=== PATIENT | female | born 1980 | race Caucasian/White ===

== ENCOUNTER 2022-01-25 17:27 | Emergency (ER) | payer OTHER ==
[2022-01-25 18:32] VITALS: TEMP 98.3
[2022-01-25] MEDS ORDERED: KETOROLAC 15 MG/ML 1 ML VIAL IVP STA (19:12)
[2022-01-25] MEDS ORDERED: SODIUM CHLORIDE 0.9% 1,000 ML IV STA (19:12)
--- NOTE | 2022-01-25 19:21 | ED ---
Female Urogenital HPI - General Source: patient, family, RN notes reviewed Mode of arrival: ambulatory Limitations: no limitations - History of Present Illness MD Complaint: vaginal bleeding Consistency: constant <Susan Arndt - Last Filed: 01/26/22 02:50> <Debby Hernandez - Last Filed: 01/29/22 22:46> - General Chief complaint: Vaginal Bleeding Stated complaint: Vaginal bleeding Time Seen by Provider: 01/25/22 18:52 - History of Present Illness Initial comments: This is a 41-year-old female who presents to the emergency department for vaginal bleeding. She and her were having sexual intercourse yesterday, and the condom broke. She then purchased and took a Plan B pill as a precautionary measure. She felt fine yesterday, however today around 1 PM, she began to have heavy bleeding. She is saturating pads every 20 minutes and is p assing very large clots as well. Also has associated dizziness, lightheadedness, nausea, and pelvic cramping. She has never taken Plan B before. She lives in [place], [place] where she is established with an HUMAN RESOURCE ANALYST. Denies any fevers, chills, sore throat, cough, dyspnea, chest pain, palpita tions, vomiting, diarrhea, back pain, or headaches. (Susan Arndt) - Related Data Previous Rx's Medication Instructions Recorded HYDROcodone/APAP 5-325MG [Joppa 1 tab PO Q6HR PRN 3 Days #12 tab 01/25/22 5-325] Allergies Allergy/AdvReac Type Severity Reaction Status Date / Time sulfamethoxazole Allergy Unknown Verified 01/25/22 18:32 [From Bactrim] tramadol Allergy Unknown Verified 01/25/22 18:32 trimethoprim [From Bactrim] Allergy Unknown Verified 01/25/22 18:32 Review of Systems ROS Other: All systems not noted in ROS Statement are negative. <Susan Arndt - Last Filed: 01/26/22 02:50> ROS Other: All systems not noted in ROS Statement are negative. <Debby Hernandez - Last Filed: 01/29/22 22:46> ROS Statement: Those systems with pertinent positive or pertinent negative responses have been documented in the HPI. Past Medical History Past Medical History: No Reported History History of Any Multi-Drug Resistant Organisms: None Reported Past Surgical History: Section Past Psychological History: Depression Smoking Status: Current every day smoker Past Alcohol Use History: None Reported Past Drug Use History: None Reported <Susan Arndt - Last Filed: 01/26/22 02:50> General Exam Limitations: no limitations General appearance: alert, in no apparent distress Head exam: Present: atraumatic, normocephalic, normal inspection Respiratory exam: Present: normal lung sounds bilaterally. Absent: respiratory distress, wheezes, rales, rhonchi, stridor Cardiovascular Exam: Present: regular rate, normal rhythm, normal heart sounds. Absent: systolic murmur, diastolic murmur, rubs, gallop, clicks External exam: Present: normal external exam Speculum exam: Present: vaginal bleeding. Absent: cervical discharge, tissue Neurological exam: Present: alert, oriented X3, CN II-XII intact Psychiatric exam: Present: normal affect, normal mood Skin exam: Present: warm, dry, intact, normal color. Absent: rash <Susan Arndt - Last Filed: 01/26/22 02:50> Course Vital Signs 01/25/22 01/25/22 01/25/22 18:27 19:43 20:26 Temperature 98.3 F Pulse Rate 86 58 L 57 L Respiratory 16 18 16 Rate Blood Pressure 115/76 97/58 146/92 O2 Sat by Pulse 98 99 98 Oximetry 01/25/22 01/25/22 01/25/22 21:11 21:50 23:57 Temperature Pulse Rate 59 L 62 54 L Respiratory 18 18 18 Rate Blood Pressure 92/56 98/58 90/62 O2 Sat by Pulse 97 96 97 Oximetry Medical Decision Making - Lab Data Result diagrams: 01/25/22 22:23 01/25/22 19:45 - Radiology Data Radiology results: report reviewed, image reviewed <Susan Arndt - Last Filed: 01/26/22 02:50> - Lab Data Result diagrams: 01/25/22 22:23 01/25/22 19:45 <Debby Hernandez - Last Filed: 01/29/22 22:46> - Medical Decision Making This is a 41-year-old female who presents to the emergency department with vaginal bleeding. Lab work reveals an elevated hCG, suggesting she was unknowingly when she took the Plan B pill. Pelvic ultrasound reveals a thickened endometrium, consistent with a . Patient's hemoglobin was rechecked, and found to have decreased from 12.3 to 10.7. After approximately 4 hours, the patient states that her bleeding had lightened and she was no longer passing clots. She was noted to have lower blood pressure in the 90s over 60s. We discussed having her stay for observation to trend her hemoglobin levels and ensure that the bleeding and pain are controlled. Patient states that because she is feeling better, she wishes to be discharged home. States that if her symptoms return or worsen, she will return to the emergency department right away. Rx for Joppa was sent to the pharmacy to help with her pain. Advised to use this sparingly and to otherwise take Tylenol and ibuprofen. She can also apply heat to the abdomen to help with the cramping. Return precautions reviewed in depth, the patient is instructed to return to the emergency department with any new, worsening, or concerning symptoms. Patient verbalized understanding. This case was discussed in detail with the attending ED physician. Presentation, findings, and treatment plan discussed in detail as well. (Susan Arndt) - Lab Data Lab Results 01/25/22 01/25/22 01/25/22 Range/Units 19:45 19:45 19:45 WBC 7.8 (3.8-10.6) k/uL RBC 3.97 (3.80-5.40) m/uL Hgb 12.3 (11.4-16.0) gm/dL Hct 36.3 (34.0-46.0) % MCV 91.4 (80.0-100.0) fL MCH 31.0 (25.0-35.0) pg MCHC 33.9 (31.0-37.0) g/dL RDW 12.3 (11.5-15.5) % Plt Count 225 (150-450) k/uL MPV 8.7 Neutrophils % 75 % Lymphocytes % 19 % Monocytes % 4 % Eosinophils % 1 % Basophils % 1 % Neutrophils # 5.8 (1.3-7.7) k/uL Lymphocytes # 1.5 (1.0-4.8) k/uL Monocytes # 0.3 (0-1.0) k/uL Eosinophils # 0.1 (0-0.7) k/uL Basophils # 0.1 (0-0.2) k/uL PT 10.6 (9.0-12.0) sec INR 1.0 (<1.2) Sodium 135 L (137-145) mmol/L Potassium 3.9 (3.5-5.1) mmol/L Chloride 105 (98-107) mmol/L Carbon Dioxide 23 (22-30) mmol/L Anion Gap 7 mmol/L BUN 11 (7-17) mg/dL Creatinine 0.77 (0.52-1.04) mg/dL Est GFR (CKD-EPI)AfAm >90 (>60 ml/min/1.73 sqM) Est GFR (CKD-EPI)NonAf >90 (>60 ml/min/1.73 sqM) Glucose 87 (74-99) mg/dL Calcium 8.9 (8.4-10.2) mg/dL Total Bilirubin 0.3 (0.2-1.3) mg/dL AST 29 (14-36) U/L ALT 73 H (4-34) U/L Alkaline Phosphatase 32 L (38-126) U/L Total Protein 6.8 (6.3-8.2) g/dL Albumin 4.5 (3.5-5.0) g/dL HCG, Quant 1011.7 mIU/mL Blood Type Blood Type Confirm Blood Type Recheck Bld Type Recheck Status Antibody Screen Spec Expiration Date 01/25/22 01/25/22 01/25/22 Range/Units 19:45 19:52 22:23 WBC 7.1 (3.8-10.6) k/uL RBC 3.36 L (3.80-5.40) m/uL Hgb 10.7 L (11.4-16.0) gm/dL Hct 30.8 L (34.0-46.0) % MCV 91.7 (80.0-100.0) fL MCH 31.9 (25.0-35.0) pg MCHC 34.7 (31.0-37.0) g/dL RDW 12.7 (11.5-15.5) % Plt Count 213 (150-450) k/uL MPV 8.5 Neutrophils % % Lymphocytes % % Monocytes % % Eosinophils % % Basophils % % Neutrophils # (1.3-7.7) k/uL Lymphocytes # (1.0-4.8) k/uL Monocytes # (0-1.0) k/uL Eosinophils # (0-0.7) k/uL Basophils # (0-0.2) k/uL PT (9.0-12.0) sec INR (<1.2) Sodium (137-145) mmol/L Potassium (3.5-5.1) mmol/L Chloride (98-107) mmol/L Carbon Dioxide (22-30) mmol/L Anion Gap mmol/L BUN (7-17) mg/dL Creatinine (0.52-1.04) mg/dL Est GFR (CKD-EPI)AfAm (>60 ml/min/1.73 sqM) Est GFR (CKD-EPI)NonAf (>60 ml/min/1.73 sqM) Glucose (74-99) mg/dL Calcium (8.4-10.2) mg/dL Total Bilirubin (0.2-1.3) mg/dL AST (14-36) U/L ALT (4-34) U/L Alkaline Phosphatase (38-126) U/L Total Protein (6.3-8.2) g/dL Albumin (3.5-5.0) g/dL HCG, Quant mIU/mL Blood Type B Positive Blood Type Confirm B Positive Blood Type Recheck No Previous Record Bld Type Recheck Status CABO Indicated Antibody Screen NEGATIVE Spec Expiration Date 01/28/20222344 Disposition Is patient prescribed a controlled substance at d/c from ED?: Yes If prescribed controlled substance>3 days was MAPS reviewed?: Prescribed <3 Days <Susan Arndt - Last Filed: 01/26/22 02:50> <Debby Hernandez - Last Filed: 01/29/22 22:46> Clinical Impression: Vaginal bleeding Disposition: HOME SELF-CARE Instructions (If sedation given, give patient instructions): Abnormal (Dysfunctional) Uterine Bleeding (ED) Additional Instructions: Return to the emergency department with any new, worsening, or concerning symptoms, especially if the bleeding returns or gets heavier of if you have increasing dizziness or fatigue. Take the Joppa when the pain is most severe, otherwise take Tylenol and ibuprofen. Follow up with your HUMAN RESOURCE ANALYST next week for reevaluation of symptoms. Prescriptions: HYDROcodone/APAP 5-325MG [Joppa 5-325] 1 tab PO Q6HR PRN 3 Days #12 tab PRN Reason: Pain Referrals: None,Stated [Primary Care Provider] - 1-2 days
[2022-01-25 19:57] LABS: Basophils # (A) 0.1 k/uL (0-0.2); Basophils % (A) 1 %; Eosinophils # (A) 0.1 k/uL (0-0.7); Eosinophils % (A) 1 %; HCT 36.3 % (34.0-46.0); HGB 12.3 gm/dL (11.4-16.0); Lymphocytes # (A) 1.5 k/uL (1.0-4.8); Lymphocytes % (A) 19 %; MCHC 33.9 g/dL (31.0-37.0); MCV 91.4 fL (80.0-100.0); Mean Platelet Volume 8.7; Monocytes # (A) 0.3 k/uL (0-1.0); Monocytes % (A) 4 %; Neutrophils # (A) 5.8 k/uL (1.3-7.7); Neutrophils % (A) 75 %; Platelet Count 225 k/uL (150-450); RBC 3.97 m/uL (3.80-5.40); RDW 12.3 % (11.5-15.5); WBC 7.8 k/uL (3.8-10.6)
[2022-01-25 20:02] LABS: Prothrombin Time 10.6 sec (9.0-12.0)
[2022-01-25 20:14] LABS: ALT 73 U/L (4-34); AST 29 U/L (14-36); African American GFR (CKD) >90 (>60 ml/min/1.73 sqM); Albumin 4.5 g/dL (3.5-5.0); Alkaline Phosphatase 32 U/L (38-126); Anion Gap 7 mmol/L; Blood Urea Nitrogen 11 mg/dL (7-17); Calcium 8.9 mg/dL (8.4-10.2); Carbon Dioxide 23 mmol/L (22-30); Chloride 105 mmol/L (98-107); Glucose 87 mg/dL (74-99); Non-African American GFR(CKD) >90 (>60 ml/min/1.73 sqM); Potassium 3.9 mmol/L (3.5-5.1); Sodium 135 mmol/L (137-145); Total Bilirubin 0.3 mg/dL (0.2-1.3); Total Protein 6.8 g/dL (6.3-8.2)
[2022-01-25] MEDS ORDERED: HYDROmorphone 0.5 MG/0.5 ML SYRINGE IVP STA ×2 (20:26→22:59)
[2022-01-25 20:30] LABS: HCG,Quantitative Serum 1011.7 mIU/mL
--- NOTE | 2022-01-25 21:02 | US ---
EXAMINATION TYPE: US transvaginal DATE OF EXAM: 01/25/2022 COMPARISON: NONE CLINICAL HISTORY: Vaginal bleeding and pelvic cramping. heavy vaginal bleeding with clots today. hist ory of right oophorectomy. 3 prior c-sections TECHNIQUE: Transvaginal (TV Date of LMP: 11/07/21 EXAM MEASUREMENTS: Uterus: 10.0 x 5.5 x 4.9 cm Endometrial Stripe: 2.2 cm Right Ovary: Surgically absent Left Ovary: 4.5 x 2.3 x 2.3 cm 1. Uterus: heterogeneous 2. Endometrium: thickened and heterogeneous 3. Right Ovary: Surgically absent 4. Left Ovary: follicles noted Spectral, color and waveform doppler imaging shows good arterial and venous flow within the left ov tiffany; there is no evidence for ovarian torsion. 5. Bilateral Adnexa: appears wnl 6. Posterior cul-de-sac: wnl IMPRESSION: Thickened endometrium with complex echogenicity and consistent with blood clots. Endometrial mass not excluded. No evidence of ovarian torsion. No adnexal mass.
[2022-01-25 21:12] VITALS: RESP 18
[2022-01-25 22:45] LABS: HCT 30.8 % (34.0-46.0); HGB 10.7 gm/dL (11.4-16.0); MCH 31.9 pg (25.0-35.0); MCHC 34.7 g/dL (31.0-37.0); MCV 91.7 fL (80.0-100.0); Mean Platelet Volume 8.5; Platelet Count 213 k/uL (150-450); RBC 3.36 m/uL (3.80-5.40); RDW 12.7 % (11.5-15.5); WBC 7.1 k/uL (3.8-10.6)
[2022-01-25] MEDS ORDERED: ACET/COD 300 MG/30 MG STARTER PACK 6 TAB BTL PO STA (22:59)
[2022-01-25 23:57] VITALS: BP 90/62; PULSE 54
== END 2022-01-26 00:13 | disposition home or self-care (01) ==
LOC: EC 17:27
DX: N93.9 Abnormal uterine and vaginal bleeding, unspecified (principal); F17.200 Nicotine dependence, unspecified, uncomplicated; Z88.2 Allergy status to sulfonamides; Z88.5 Allergy status to narcotic agent
CPT/HCPCS: 99284; 96374; 96375; 96376; 96361; 36415; 86900; 86901; 80053; 85025; 85027; 85610; 86850; 84702; 93976; 76830; J1885; J1170 ×2